=== PATIENT | male | born 1955 | race Caucasian/White ===

== ENCOUNTER 2018-01-25 13:51 | Emergency (ER) | payer OTHER ==
[2018-01-25] MEDS ORDERED: Rabies VIRUS VACCINE (Imovax)* 2.5 UNIT/ML 1 ML IM ONE (13:52)
[2018-01-25] MEDS ORDERED: Rabies Immune Globulin 10 ML* 150 UNIT/ML VIAL IM ONE (13:52)
[2018-01-25] MEDS ORDERED: Tetan/Diph/Pertus SYR(Tdap)* 0.5 ML SYR(BOOSTRIX) use SYR IM ONE (13:52)
--- NOTE | 2018-01-25 13:52 | UC ---
General HPI - HPI Summary HPI Summary: 62 yo male presents for rabies vaccination. He tells me that 4 days ago he noticed a bat in the house overnight. They contacted the health department and it was recommended to undergo to the rabies vaccination. Pt does not believe he was bitten. - History of Current Complaint Stated Complaint: RABIES SHOT Time Seen by Provider: 01/25/18 13:52 Hx Obtained From: Patient Current Severity: None - Allergy/Home Medications Allergies/Adverse Reactions: Allergies Allergy/AdvReac Type Severity Reaction Status Date / Time latex Allergy Rash Verified 01/25/18 14:14 PMH/Surg Hx/FS Hx/Imm Hx Endocrine History: Dyslipidemia - Surgical History Surgical History: None - Family History Known Family History: Positive: None - Social History Occupation: Employed Full-time Lives: With Family Alcohol Use: Occasionally Substance Use Type: None Smoking Status (MU): Never Smoked Tobacco Review of Systems Constitutional: Negative Skin: Negative Respiratory: Negative Cardiovascular: Negative Gastrointestinal: Negative Neurovascular: Negative Neurological: Negative Psychological: Negative All Other Systems Reviewed And Are Negative: Yes Physical Exam - Summary Physical Exam Summary: GENERAL: NAD. WDWN. No pain distress. SKIN: No puncture wounds or bite site appreciated. No streaking, bleeding, or drainage. NECK: Supple. Nontender. No lymphadenopathy. CHEST: No accessory muscle use. Breathing comfortably and in no distress. CV: Pulses intact NEURO: Alert. CN II-XII grossly intact. PSYCH: Age appropriate behavior. Triage Information Reviewed: Yes Vital Signs: Vital Signs: Temp Pulse Resp BP Pulse Ox 97.8 F 55 18 135/81 98 01/25/18 14:11 01/25/18 14:11 01/25/18 14:11 01/25/18 14:11 01/25/18 14:11 Vital Signs Reviewed: Yes Course/Dx - Course Course Of Treatment: Rabies vaccine, RIG, and tdap given according to guidelines. - Differential Dx - Multi-Symptom Provider Diagnoses: Bat exposure Discharge - Sign-Out/Discharge Documenting (check all that apply): Patient Departure - Discharge Plan Condition: Stable Disposition: HOME Patient Education Materials: Rabies Vaccine (By injection), Rabies Immune Globulin (By injection), Rabies (ED) Referrals: Shayna Noble MD [Primary Care Provider] - Additional Instructions: If you develop a fever, shortness of breath, chest pain, new or worsening symptoms - please call your PCP or go to the ED. - Billing Disposition and Condition Condition: STABLE Disposition: Home
--- OUTSIDE RECORDS SUMMARY | 2018-01-25 13:58 | XMS REPORT ---
:1955 External Reference #:[id number] Author Organization [facility] Address [address] [place] [address] Phone [phone] Care Team Providers Name Role Phone Shayna Noble MD Primary Care Physician Unavailable Payers Type Date Identification Numbers Payment Provider Subscriber Commercial Policy Number: [id number] [employer] Payal Buck Group Number: [id number] [id number] Group Name: [place] [address] PayID: [id number] Problems Date Description Provider Status Onset: 10/03/2009 Irritable bowel syndrome Kirsten Jo M.D., FACP Active Onset: 05/10/2014 Hypercholesterolemia Shayna Noble M.D. Active Onset: 02/14/2017 Tubular adenoma Shayna Noble M.D. Active Onset: 07/31/2017 Allergic rhinitis Shayna Noble M.D. 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 Exercise Type/Frequency Walks daily Allergies, Adverse Reactions, Alerts Date Description Reaction Status Severity Comments 10/03/2009 NKDA active 05/22/2016 Latex active Medications Medication Date Status Form Strength Qnty SIG Indications Ordering Provider Mometasone 01/14/ Active Suspension 50mcg/Act 17uni use 1 J30.2 Shayna Furoate 2017 ts spray(s) in Noble, each nostril M.D. once daily Shingrix 07/31/ Active Suspension 50mcg 1unit Im X 1 Z23 Shayna 2018 Rec s Danielito Noble Simvastatin 05/22/ Active Tablets 10mg 90tab Take One Shayna 2014 s Tablet By Aide, Mouth AT M.D. Bedtime No Active 05/16/ Hx Unknown Medications 2014 - 2014 Clotrimazole/B 05/16/ Hx Cream 1-0.05% 90gm apply to L21.9 Shayna etamethasone 2014 - affected Aide Dipropionate 07/31/ area on the M.D. 2018 affected areas twice a day x 10 days Nystatin 05/16/ Hx Powder [id number] 120gm apply to B37.9 Shayna 2014 - t/GM affected Noble, 07/31/ areas twice M.D. 2017 a day as needed for rash in the groins x 10 days Doxycycline 10/19/ Hx Capsules 100mg 2caps 2 tabs by 088.9 Juanito Gold Hyclate 2013 - mouth once Melany, 11/25/ M.D. 2012 Econazole 07/23/ Hx Cream 1% 30gm apply to 709.8 Kirsten Nitrate 2011 - affected Deysi, 05/10/ area daily M.D., 2013 as needed FACP Nasonex 07/23/ Hx Suspension 50mcg/Act 1unit 2 sprays to 780.59 Kirsten 2011 - s each nostril Deysi, 05/10/ daily M.D., 2013 FACP Viagra 07/23/ Hx Tablets 50mg 12tab po 1 tab 1h 607.89 Kirsten 2011 - s before Deysi, 05/10/ intercourse M.D., 2013 prn FACP Simvastatin 10/22/ Hx Tablets 10mg 90tab take one Shayna 2010 - s tablet by Aide, 05/15/ mouth at M.D. 2014 bedtime Omeprazole 07/08/ Hx CPDR 20mg 30uni Take One Kirsten 2010 - ts Capsule By Deysi, 03/28/ Mouth Every M.D., 2010 Day FACP Zithromax 05/04/ Hx Tablets 250mg 1Pack two po Kirsten Z-Gabriel 2009 - initially Deysi, 05/14/ then one po M.D., 2009 daily FACP Flonase 05/04/ Hx Suspension 50mcg/Act 1unit 1 intranasal Kirsten 2009 - s puff to each Deysi, 05/14/ nostril M.D., 2009 daily FACP Zocor 11/28/ Hx Tablets 10mg 90tab 1 tablet Kirsten 2009 - s every night Deysi, 10/22/ M.D., 2010 FACP Omeprazole 11/28/ Hx Capsules DR 20mg 90cap 1 capsule Kirsten 2009 - daily Deysi, 02/06/ M.D., 2009 FACP Nasonex 10/03/ Hx Suspension 50mcg/Act 1mont 2 sprays Kirsten 2009 - [place] each nostril Deysi, 02/06/ daily M.D., 2009 FACP Immunizations CPT Code Status Date Vaccine Lot # [id number] Given 05/22/2016 Influenza Virus Vaccine, Quadrivalent, Split [id number] Virus, [place] Use 23841 Given 05/16/2015 Tdap - Tetanus/Diptheria/Acellular Pertussis [id number] Given 05/16/2015 Influenza Virus Vaccine, Quadrivalent, Split, [id number] Preservative Free 48758 Given 05/10/2014 Flu Vaccine Split Virus Preservative Free For [id number] Indiv 3Yr Older 20805 Given 03/28/2011 Influenza Virus 3Yrs & Over [id number] Vital Signs Date Vital Result Comment 01/14/2018 Height 72.5 inches 6'0.50" Weight 175.00 lb Heart Rate 60 /min BP Systolic Sitting 129 mmHg BP Diastolic Sitting 80 mmHg Body Temperature 97.9 F O2 % BldC Oximetry 97 % BMI (Body Mass Index) 23.4 kg/m2 07/31/2017 Height 72.5 inches 6'0.50" Weight 176.00 lb Heart Rate 65 /min BP Systolic Sitting 138 mmHg BP Diastolic Sitting 80 mmHg O2 % BldC Oximetry 97 % BMI (Body Mass Index) 23.5 kg/m2 05/22/2016 Height 73 inches 6'1" Weight 181.00 lb Heart Rate 96 /min BP Systolic Sitting 128 mmHg BP Diastolic Sitting 86 mmHg Body Temperature 97.7 F O2 % BldC Oximetry 99 % BMI (Body Mass Index) 23.9 kg/m2 05/16/2015 Height 73 inches 6'1" Weight 183.00 lb Heart Rate 73 /min BP Systolic Sitting 126 mmHg BP Diastolic Sitting 80 mmHg Body Temperature 97.5 F Pain Level 0 O2 % BldC Oximetry 98 % BMI (Body Mass Index) 24.1 kg/m2 05/10/2014 Height 73 inches 6'1" Weight 177.00 lb Heart Rate 60 /min BP Systolic Sitting 122 mmHg BP Diastolic Sitting 80 mmHg BMI (Body Mass Index) 23.3 kg/m2 11/25/2012 Weight 181.00 lb Heart Rate 66 /min BP Systolic Sitting 130 mmHg BP Diastolic Sitting 86 mmHg 10/19/2012 Weight 177.00 lb Heart Rate 68 /min BP Systolic Sitting 118 mmHg BP Diastolic Sitting 70 mmHg 07/23/2011 Height 74 inches 6'2" Weight 182.00 lb Heart Rate 68 /min BP Systolic Sitting 122 mmHg L BP Diastolic Sitting 74 mmHg L BMI (Body Mass Index) 23.4 kg/m2 03/28/2011 Height 74 inches 6'2" Weight 177.00 lb Heart Rate 68 /min BP Systolic Sitting 130 mmHg BP Diastolic Sitting 72 mmHg BMI (Body Mass Index) 22.7 kg/m2 2010 Heart Rate 60 /min BP Systolic 120 mmHg BP Diastolic 78 mmHg Body Temperature 98.5 F Results Test Date Test Result H/L Range Note Lipid Profile (Trig/Chol/HDL) 07/22/2017 Triglycerides 69 mg/dL 1 Cholesterol 179 mg/dL 2 HDL Cholesterol 66.2 mg/dL 3 LDL Cholesterol 99 mg/dL 4 Comp Metabolic Panel 07/22/2017 Sodium 137 mmol/L 133-145 Potassium 4.2 mmol/L 3.5-5.0 Chloride 104 mmol/L 101-111 Co2 Carbon Dioxide 30 mmol/L 22-32 Anion Gap 3 mmol/L 2-11 Glucose 97 mg/dL 70-100 Blood Urea Nitrogen 14 mg/dL 6-24 Creatinine 0.91 mg/dL 0.67-1.17 BUN/Creatinine Ratio 15.4 8-20 Calcium 9.7 mg/dL 8.6-10.3 Total Protein 6.7 g/dL 6.4-8.9 Albumin 4.4 g/dL 3.2-5.2 Globulin 2.3 g/dL 2-4 Albumin/Globulin Ratio 1.9 1-3 Total Bilirubin 1.10 mg/dL High 0.2-1.0 Alkaline Phosphatase 52 U/L 34-104 Alt 19 U/L 7-52 Ast 24 U/L 13-39 Egfr Non- 84.7 >60 Egfr 108.9 >60 5 Laboratory test finding 02/13/2017 Surgical Pathology SEE RESULT BELOW 6, 7 Lipid Profile 03/27/2016 Triglycerides 41 mg/dL 8 (Trig/Chol/HDL) Cholesterol 138 mg/dL 9 HDL Cholesterol 57.4 mg/dL 10 LDL Cholesterol 72 mg/dL 11 Laboratory test finding 03/27/2016 Glucose 98 mg/dL 70-100 12 Hemoglobin A1c (Glyco HGB) 5.6 % Less than 6.0 13 Lipid Profile (Trig/Chol/HDL) 05/19/2015 Triglycerides 62 mg/dL 14 Cholesterol 219 mg/dL 15 HDL Cholesterol 55.1 mg/dL 16 LDL Cholesterol 152 mg/dL 17 Laboratory test finding 05/19/2015 Glucose 103 mg/dL High 70-100 18 CBC Auto Diff 05/19/2015 White Blood Count 5.9 10^3/uL 4.8-10.8 Red Blood Count 4.64 10^6/uL 4.0-5.4 Hemoglobin 14.7 g/dL 14.0-18.0 Hematocrit 44 % 42-52 Mean Corpuscular Volume 95 fL High 80-94 Mean Corpuscular Hemoglobin 32 pg High 27-31 Mean Corpuscular HGB Conc 34 g/dL 31-36 Red Cell Distribution Width 13 % 10.5-15 Platelet Count 211 10^3/uL 150-450 Mean Platelet Volume 9 um3 7.4-10.4 Abs Neutrophils 3.5 10^3/uL 1.5-7.7 Abs Lymphocytes 1.5 10^3/uL 1.0-4.8 Abs Monocytes 0.7 10^3/uL 0-0.8 Abs Eosinophils 0.2 10^3/uL 0-0.6 Abs Basophils 0.1 10^3/uL 0-0.2 Abs Nucleated RBC 0 10^3/uL Granulocyte % 59.1 % 38-83 Lymphocyte % 25.4 % 25-47 Monocyte % 11.6 % High 1-9 Eosinophil % 2.9 % 0-6 Basophil % 1.0 % 0-2 Nucleated Red Blood Cells % 0.1 Laboratory test finding 05/19/2015 Hepatitis C Antibody Nonreactive Nonreactive 19 Hemoglobin A1c (Glyco HGB) 5.6 % Less than 6.0 20 Laboratory test finding 05/03/2014 Glucose 98 mg/dL 70-100 21, 22 Lipid Profile (Trig/Chol/HDL) 05/03/2014 Triglycerides 78 mg/dL 21, 23 Cholesterol 162 mg/dL 21, 24 HDL Cholesterol 66.1 mg/dL 21, 25 LDL Cholesterol 80 mg/dL 21, 26 Lipid Profile (Trig/Chol/HDL) 12/04/2012 Triglycerides 50 mg/dL 40-200 Cholesterol 164 mg/dL Less than 200 HDL Cholesterol 71 mg/dL High 40-60 27 Cholesterol/HDL Ratio 2.3 Average 1-4.44 LDL Cholesterol 83.0 Less Than 100 28 Comp Metabolic Panel 12/04/2012 Sodium 138 mmol/L 133-145 Potassium 4.7 mmol/L 3.5-5.0 Chloride 105 mmol/L 101-111 Co2 Carbon Dioxide 27.0 mmol/L 22-32 Anion Gap 6.0 mmol/L 2-11 Glucose 103 mg/dL High 70-100 Blood Urea Nitrogen 12 mg/dL 6-24 Creatinine 1.00 mg/dL 0.50-1.40 BUN/Creatinine Ratio 12.0 8-20 Calcium 9.7 mg/dL 8.1-9.9 Total Protein 6.2 g/dL 6.2-8.1 Albumin 4.1 g/dL 3.6-5.4 Globulin 2.1 g/dL 2-4 Albumin/Globulin Ratio 2.0 1-3 Total Bilirubin 1.2 mg/dL 0.4-1.5 Alkaline Phosphatase 47 U/L 30-110 Alt 26 U/L 14-54 Ast 33 U/L 12-42 Egfr Non- 77.3 >60 Egfr 99.4 >60 29 Lipid Profile (Trig/Chol/HDL) 11/27/2011 Triglyceride 63 mg/dL 40-200 Cholesterol 166 mg/dL Less Than 200 30 High Density Lipoprotein 66 mg/dL High 40-60 31 Cholesterol/HDL Ratio 2.52 AVERAGE 1-4.97 Low Density Lipoprotein 87 mg/dL Less Than 100 32 Comp Metabolic Panel 11/27/2011 Sodium 139 mmol/L 135-145 Potassium 4.4 mmol/L 3.5-5.0 Chloride 105 mmol/L 101-111 Co2 (Carbon Dioxide) 30.0 mmol/L 22-32 Anion Gap 4.0 mmol/L 2-11 33 Glucose 98 mg/dL 70-100 BUN 14 mg/dL 6-24 Creatinine 1.1 mg/dL 0.50-1.40 One Over Creatinine 0.90 BUN/Creatinine Ratio 12.7 8-20 Calcium 9.4 mg/dL 8.1-9.9 Total Protein 6.5 GM/DL 6.2-8.1 Albumin 4.2 GM/DL 3.6-5.4 Globulin 2.3 GM/DL 2-4 Albumin/Globulin Ratio 1.8 1-3 Bilirubin Total 1.3 mg/dL 0.4-1.5 34 Alkaline Phosphatase 45 U/L 39-117 Alt (SGPT) 26 U/L 17-63 Ast (Sgot) 27 U/L 12-42 eGFR Non- 69.5 > 60 eGFR 89.4 > 60 35 Laboratory test finding 11/27/2011 C Reactive Protein High 1.1 mg/L Less Than 3 36 Sensit 1 Desirable: <150 Borderline High: 150-199 High: 200-499 Very High: >500 2 Desirable: <200 Borderline High: 200-239 High: >239 3 Low: <40 Desirable: 40-60 High: >60 4 Desirable: <100 Near Optimal: 100-129 Borderline High: 130-159 High: 160-189 Very High: >189 5 Because ethnic data is not always readily available, this report includes an eGFR for both -Americans and non- Americans. The National Kidney Disease Education Program (NKDEP) does not endorse the use of the MDRD equation for patients that are not between the ages of 18 and 70, are , have extremes of body size, muscle mass, or nutritional status, or are non- or non-. According to the National Kidney Foundation, irrespective of diagnosis, the stage of the disease is based on the level of kidney function: Stage Description GFR(mL/min/1.73 m(2)) 1 Kidney damage with normal or decreased GFR 90 2 Kidney damage with mild decrease in GFR 60-89 3 Moderate decrease in GFR 30-59 4 Severe decrease in GFR 15-29 5 Kidney failure <15 (or dialysis) 6 [id number] SEE RESULT BELOW Name: ANKIT CLAY : [address]: Shawn Goldberg MD Acct: [id number] Unit: [id number] AGE: 61 Location: [facility] Re02/13/17 SEX: M Status: DEP REF SPEC: [id number] ELIZABETH: 02/13/17- SUBM DR: Shawn Goldberg MD REQ: [id number] RECD: 02/13/170 STATUS: MICHAEL GAMBINO DR: Shayna Noble MD _ ORDERED: LEVEL 4/2 COMMENTS: [id number] FINAL DIAGNOSIS 1. Colon, transverse, biopsy: -- Tubular adenoma. -- No high grade dysplasia or malignancy. 2. Colon, rectum, biopsy: -- Hyperplastic polyp. CLINICAL HISTORY History of polyps POST-OPERATIVE DIAGNOSIS Colonoscopy with polypectomy, rectal polyps removed with cold snare and cold forceps, transverse colon polyp removed with cold forceps, scattered diverticulosis. Conclusions/Plan: Await pathology and increase fiber in diet. GROSS DESCRIPTION 1. The specimen is received in formalin labeled, Biopsy Transverse Colon Polyp, and consists of a 0.2 x 0.2 x 0.1 cm woodward polypoid soft tissue fragment which is inked and submitted entirely in one cassette. 2. The specimen is received in formalin labeled, Rectal Polyp, and consists of two woodward-pink irregular to polypoid soft tissue fragments measuring 0.3 x 0.2 x 0.2 cm and 0.5 x 0.4 x 0.3 cm. The larger fragment is inked, bisected and the specimen is submitted entirely in one cassette. Signed (signature on file) Cathi Miller MD 07/02 1133 END OF REPORT * ML=Testing performed at Main Lab DEPARTMENT OF PATHOLOGY, [address] [place] [address] Noel Velazquez M.D. Director [facility] # [id number] 8 Desirable <150 Borderline high 150-199 High 200-499 Very High >500 9 Desirable <200 Borderline high 200-239 High >239 10 Low <40 Desirable: 40-60 High: >60 11 Desirable: <100 mg/dL Near Optimal: 100-129 mg/dL Borderline High: 130-159 mg/dL High: 160-189 mg/dL Very High: >189 mg/dL 12 FASTING 12 HOUR 13 Therapeutic target for the treatment of diabetes Mellitus patients is <7% HBA1C, and in selective patients <6.0%.Please refer to [place] [employer] Diabetic care guidelines for further information. 14 Desirable <150 Borderline high 150-199 High 200-499 Very High >500 15 Desirable <200 Borderline high 200-239 High >239 16 Low <40 Desirable: 40-60 High: >60 17 Desirable: <100 mg/dL Near Optimal: 100-129 mg/dL Borderline High: 130-159 mg/dL High: 160-189 mg/dL Very High: >189 mg/dL 18 FASTING 12 HOUR 19 FASTING 12 HOUR 20 Therapeutic target for the treatment of diabetes Mellitus patients is <7% HBA1C, and in selective patients <6.0%.Please refer to [place] [employer] Diabetic care guidelines for further information. 21 PT IS FASTING 22 PT IS FASTING 23 Desirable <150 Borderline high 150-199 High 200-499 Very High >500 24 Desirable <200 Borderline high 200-239 High >239 25 Low <40 Desirable: 40-60 High: >60 26 Desirable <100 Near Optimal 100-129 Borderline high 130-159 High 160-189 Very High >189 27 HDL Interpretation: Undesirable: High Risk: Less than 40 mg/dL Desirable: Low Risk: Greater than 60 mg/dL 28 LDL Interpretation: Low Risk Optimal Level: LDL Less than 100 mg/dL Near or Above Optimal: LDL 100-129 mg/dL Borderline High Risk: LDL 130-159 mg/dL High Risk: LDL 160-189 mg/dL Very High Risk: LDL Greater than 189 mg/dL 29 Because ethnic data is not always readily available, this report includes an eGFR for both -Americans and non- Americans. The National Kidney Disease Education Program (NKDEP) does not endorse the use of the MDRD equation for patients that are not between the ages of 18 and 70, are , have extremes of body size, muscle mass, or nutritional status, or are non- or non-. According to the National Kidney Foundation, irrespective of diagnosis, the stage of the disease is based on the level of kidney function: Stage Description GFR(mL/min/1.73 m(2)) 1 Kidney damage with normal or decreased GFR 90 2 Kidney damage with mild decrease in GFR 60-89 3 Moderate decrease in GFR 30-59 4 Severe decrease in GFR 15-29 5 Kidney failure <15 (or dialysis) 30 CHOLESTEROL INTERPRETATION: Desirable: Less than 200 MG/DL Borderline-High Risk: 200-239 MG/DL High-Risk: 240 MG/DL and over 31 HDL INTERPRETATION: Undesirable: High Risk: Less than 40 MG/DL Desirable: Low Risk: Greater than 60 MG/DL 32 LDL INTERPRETATION: Low Risk Optimal Level: LDL Less than 100 MG/DL Near or Above Optimal: LDL 100-129 MG/DL Borderline High Risk: LDL 130-159 MG/DL High Risk: LDL 160-189 MG/DL Very High Risk: LDL Greater than 189 MG/DL 33 Anion gap measurement may be of limited value in the presence of any alkalosis, especially in a combined acid base disorder. . 34 A metabolite of Naproxen, O-desmethylnaproxen, has been shown to interfere with the Jendrassik-Rumson method for measuring total bilirubin. Samples from patients who have taken Naproxen have shown spurious elevation in total bilirubin levels. 35 Because ethnic data is not always readily available, this report includes an eGFR for both -Americans and non- Americans. The National Kidney Disease Education Program (NKDEP) does not endorse the use of the MDRD equation for patients that are not between the ages of 18 and 70, are , have extremes of body size, muscle mass, or nutritional status, or are non- or non-. According to the National Kidney Foundation, irrespective of diagnosis, the stage of the disease is based on the level of kidney function: Stage Description GFR(mL/min/1.73 m(2)) 1 Kidney damage with normal or decreased GFR 90 2 Kidney damage with mild decrease in GFR 60-89 3 Moderate decrease in GFR 30-59 4 Severe decrease in GFR 15-29 5 Kidney failure <15 (or dialysis) 36 Less Than 1.0......Low Risk of Cardiovascular Disease 1.0-3.0............Medium Risk (<2 Fold Increase) Greater Than 3.0...High Risk (Approximately 2-Fold Increase) Procedures Date CPT Code Description Status 02/13/2017 28571 Moderate Sedation Services; Same Phys Each Additional Completed 15 Mins 02/13/2017 72867 Moderate Sedation Services; Same Phys Intl 15 Mins; PT Completed >=5 Years 02/13/2017 24843 Colonoscopy Flexible Remove Tumor/Polyp/Lesion Snare Completed Technique 02/13/2017 Colonoscopy Completed 07/23/2011 49955 EKG Tracing & Interpretation Completed 01/25/2011 Colonoscopy Completed 09/18/2009 95549 EKG Tracing & Interpretation Completed 09/18/2009 Colonoscopy Completed 08/18/2007 49870 EKG Tracing & Interpretation Completed Encounters Type Date Location Provider CPT E/M Dx Office Visit 10/27/2017 11:30a [facility] [place] [address] L21.8 L81.4 L82.1 B35.1 B35.6 D22.62 Office Visit 07/31/2017 11:10a [facility] Internal Medicine Shayna Noble, 88028 Z00.00 - Amor Esteves J30.9 Z23 L60.1 Z12.83 R39.11 Office Visit 05/22/2016 9:10a [facility] Internal Medicine Shayna Fortunean, 50545 Z00.00 - Arrowdavid Esteves E78.00 M25.551 L57.0 Z23 Office Visit 05/16/2015 9:10a [facility] Internal Medicine Shayna Noble, 25360 Z00.01 - Hemalatha Esteves E78.0 Z23 Z11.59 Z12.83 L21.9 B37.2 R05 Office Visit 05/10/2014 9:10a [facility] Internal Medicine Shayna Noble M.D. 59440 V70.0 - [place] V04.81 V76.43 272.0 Office Visit 11/25/2012 11:00a [facility] Internal Medicine - Kirsten Jo M.D., 32693 V70.0 [place] FACP 272.0 Office Visit 10/19/2012 4:00p [facility] Internal Medicine - Kirsten Jo M.D., 21892 088.9 [place] FACP 709.8 Office Visit 07/23/2011 9:20a [facility] Internal Medicine - Kirsten Jo M.D., 85175 V70.0 [place] FACP 272.0 564.1 709.8 780.59 607.89 Office Visit 03/28/2011 11:00a DO Not Use [facility] Kirsten Jo 53828 709.8 M.Gwendolyn, FACP v04.81 Office Visit 2010 3:00p DO Not Use Wen Navas, 66027 461.9 [facility] N.P. Office Visit 02/06/2010 9:00a DO Not Use Kirsten Jo M.D., 03142 272.0 [facility] FACP Office Visit 11/29/2009 11:45a DO Not Use Kirsten Jo M.D., 22991 789.07 [facility] FACP 272.0 Office Visit 11/14/2009 3:00p DO Not Use [facility] Kirsten Jo 81995 789.07 MKristin, FACP Office Visit 10/04/2009 9:30a DO Not Use [facility] Kirsten Deysi, 98923 272.4 M.D., FACP Office Visit 09/18/2009 9:00a DO Not Use [facility] Kirsten Deysi, 24205 V70.0 M.D., FACP 780.79 272.0 Office Visit 06/07/2009 3:30p DO Not Use [facility] Kirsten Deysi, 79794 461.9 M.D., FACP Office Visit 08/18/2007 9:30a DO Not Use [facility] Kirsten Deysi, 03179 V70.0 M.D., FACP 786.50 Office Visit 07/14/2007 2:30p DO Not Use [facility] Kirsten Deysi, 92149 564.1 M.D., FACP 272.0 Plan of Care Future Appointment(s):08/03/2018 9:10 am - Shayna Noble M.D. at [facility] Internal Medicine - Rfthvulzn99/01/2018 - Shayna Noble M.D.J30.2 Other seasonal allergic rhinitisNew Medication:Mometasone Furoate 50 mcg/ActComments: try take fito or Zyrtec once a day
[2018-01-25 14:13] VITALS: BP 135/81
[2018-01-25] MEDS ORDERED: Rabies Immune Globulin 2 ML* 150 UNITS/ML VIAL IM ONE (14:27)
== END 2018-01-25 15:05 | disposition home or self-care (01) ==
LOC: UCEAST 13:51
DX: Z20.3 Contact with and (suspected) exposure to rabies (principal); Z23 Encounter for immunization; Z91.040 Latex allergy status
CPT/HCPCS: 90375; 90471; 90472; 90715; 96372; 99211; G0463

== ENCOUNTER 2018-02-17 18:52 | Emergency (ER) | payer OTHER ==
--- OUTSIDE RECORDS SUMMARY | 2018-02-17 19:09 | XMS REPORT ---
:1955 External Reference #:[id number] Author Organization Mando Xavier M.D., [facility] Address [address] [place] [address] Phone [phone] Care Team Providers Name Role Phone Shayna Noble MD Care Team Information Vault Keeper Unavailable Shayna Noble MD Primary Care Physician Unavailable Payers Type Date Identification Numbers Payment Provider Subscriber Health Maintenance Policy Number: [employer] Payal Mccollum [place] (HMO) [id number] PayID: [id number] [address] [place] [address] Problems Description No Information Family History Date Family Member(s) Problem(s) Comments Father Heart Disease Mother Age-Related Macular Degeneration Mother Cancer Mother High BP Social History Type Date Description Comments ETOH Use Occasionally consumes alcohol Smoking Patient has never smoked Allergies, Adverse Reactions, Alerts Date Description Reaction Status Severity Comments 12/10/2016 NKDA active Medications Medication Date Status Form Strength Qnty SIG Indications Ordering Provider Simvastatin Active Tablets 40mg Unknown Vital Signs Date Vital Result Comment 10/28/2017 Intraocular Pressure Right Eye 15 mmHg Intraocular Pressure Left Eye 15 mmHg 12/10/2016 Intraocular Pressure Right Eye 14 mmHg Intraocular Pressure Left Eye 14 mmHg Results Description No Information Procedures Date CPT Code Description Status 10/28/2017 31294 Oct, Optic Nerve Completed 10/28/2017 83805 Visual Field Exam Extended, Unilateral Or Bilateral Completed 10/28/2017 95564 Eye Exam Est Intermediate Completed 12/10/2016 38596 Oct Retina Completed 12/10/2016 18151 Refraction Completed 12/10/2016 23672 Eye Exam New Comprehensive Completed Plan of Care No Information Available
--- OUTSIDE RECORDS SUMMARY | 2018-02-17 19:09 | XMS REPORT ---
:1955 External Reference #:[id number] Author Organization Mando Xavier M.D., [facility] Address [address] [place] [address] Phone [phone] Care Team Providers Name Role Phone Shayna Noble MD Care Team Information Nurse Practitioner Hospitalist Unavailable Shayna Noble MD Primary Care Physician Unavailable Payers Type Date Identification Numbers Payment Provider Subscriber Health Maintenance Policy Number: [employer]al Mccollum [employer] (HMO) [id number] PayID: [id number] [address] [place] [address] Problems Description No Information Family History Date [...] Unknown Vital Signs Date Vital Result Comment 01/26/2018 Intraocular Pressure Right Eye 17 mmHg Intraocular Pressure Left Eye 17 mmHg 10/28/2017 Intraocular Pressure Right Eye 15 mmHg Intraocular Pressure Left Eye 15 mmHg 12/10/2016 Intraocular Pressure Right Eye 14 mmHg Intraocular Pressure Left Eye 14 mmHg Results Description No Information Procedures Date CPT Code Description Status 01/26/2018 84475 Oct Retina Completed 01/26/2018 90944 Refraction Completed 01/26/2018 12328 Eye Exam Est Comprehensive Completed 10/28/2017 15903 Oct, Optic Nerve Completed 10/28/2017 86010 Visual Field Exam Extended, Unilateral Or Bilateral Completed 10/28/2017 37079 Eye Exam Est Intermediate Completed 12/10/2016 87769 Oct Retina Completed 12/10/2016 46208 Refraction Completed 12/10/2016 05832 Eye Exam New Comprehensive Completed Plan of Care 01/26/2018 - Toni Gan, ODH40.013 Open angle with borderline findings, low risk, [id number] Puckering of macula, [id number] Combined forms of age-related cataract, bilateralFollow up:6 mos VF/OCT nerve
[2018-02-17] MEDS ORDERED: Ibuprofen TAB* 800 MG PO ONE (19:36)
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
[2018-02-17 20:30] LABS: ABS Basophils 0 10^3/ul (0-0.2); ABS Eosinophils 0.1 10^3/ul (0-0.6); ABS Lymphocytes 1.8 10^3/ul (1.0-4.8); ABS Monocytes 1.2 10^3/ul (0-0.8); ABS Neutrophils 6.4 10^3/ul (1.5-7.7); ABS Nucleated RBC 0 10^3/ul; Eosinophil % 0.6 % (0-6); Hematocrit 40 % (42-52); Hemoglobin 13.6 g/dl (14.0-18.0); Lymphocyte % 19.1 % (25-47); Mean Corpuscular HGB Conc 34 g/dl (31-36); Mean Corpuscular Hemoglobin 32 pg (27-31); Mean Corpuscular Volume 93 fL (80-94); Mean Platelet Volume 8.1 um3 (7.4-10.4); Nucleated Red Blood Cells % 0; Platelet Count 211 10^3/ul (150-450); Red Blood Count 4.26 10^6/ul (4.00-5.40); Red Cell Distribution Width 13 % (10.5-15); White Blood Count 9.5 10^3/ul (3.5-10.8)
[2018-02-17 20:39] LABS: INR 0.9 (0.77-1.02)
[2018-02-17 20:56] LABS: EGFR Non-African American 69.5 (>60)
[2018-02-17 21:00] LABS: Urine Appearance Clear; Urine Blood Negative (Negative); Urine Color Yellow; Urine Ketones Negative (Negative); Urine Protein Negative (Negative); Urine Specific Gravity 1.011 (1.010-1.030); Urine Urobilinogen Negative (Negative)
[2018-02-17] MEDS ORDERED: Iohexol 300* (CONTRAST) 10 ML SDV IV ONE (21:04)
[2018-02-17] MEDS ORDERED: NS 0.9% 1000 ML* 1,000 ML IV ONE (21:08)
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
[2018-02-17 22:31] VITALS: BP 136/76
--- NOTE | 2018-02-17 23:03 | RAD ---
INDICATION: Chest wall pain (laterality not specified) COMPARISON: Chest x-ray dated September 18, 2009 TECHNIQUE: PA and lateral views of the chest were obtained. FINDINGS: The heart and mediastinum are normal in size and contour. The lungs are grossly clear. There is no evidence of large pleural effusion. Visualized bones are normal for the patient's age. There is no radiographic evidence of free air beneath the diaphragm IMPRESSION: No radiographic evidence of acute cardiopulmonary disease. R2
== END 2018-02-17 22:30 | disposition home or self-care (01) ==
LOC: ED 18:52
DX: M54.2 Cervicalgia (principal); R51 Headache; R42 Dizziness and giddiness; M79.606 Pain in leg, unspecified; R07.89 Other chest pain; R55 Syncope and collapse; T14.8XXA Other injury of unspecified body region, initial encounter; V13.4XXA Pedal cycle driver injured in collision with car, pick-up truck or van in traffic accident, initial encounter; Y93.55 Activity, bike riding; Y92.9 Unspecified place or not applicable; Z91.040 Latex allergy status
CPT/HCPCS: 36415; 70450; 71046; 71260; 74177; 80053; 81003; 82150; 82550; 83605; 83690; 85025; 85610; 85730; 93005; 96360; 99282; A9270-GY; Q9967